=== PATIENT | male | born 1980 | race Caucasian/White ===

== ENCOUNTER 2016-06-22 22:40 | Emergency (ER) | payer MEDICAID ==
[~2016-06-22] VITALS: Ht 165.1 cm; Wt 61.2 kg
[2016-06-22] MEDS ORDERED: NKM (23:06)
[2016-06-22 23:38] VITALS: BP 116/59
--- NOTE | 2016-06-22 23:39 | Emergency Room Report ---
History of Present Illness General Chief Complaint: Abdominal Pain Source: Patient Present Illness [facility] This is a 36-year-old male with no past medical history. He presents with chief complaint of pain to his feet and also rash to his body. The pain been ongoing for last couple days. Worse with walking. Rashes body been ongoing for about 2 weeks now. He said he thinks is from the new closer he picked up. He said he seen bugs in his skin his been scratching it. Initially denies any drug use. Later on admit to using methamphetamine. Denies any fever chills denies any nausea vomiting. Also complaining that he had some rectal bleeding. He said he woke up with the man next to him. This occurred 2 weeks ago also. He did not know if there was any sexual intercourse occurred. He said he was sleeping. Allergies: Coded Allergies: No Known Allergies (Unverified , 06/22/16) Patient History Past Medical History: see triage record, old chart reviewed Past Surgical History: none Pertinent Family History: none Social History: Reports: drug use, smoking Immunizations: other Reviewed Nursing Documentation: PMH: Agreed, PSxH: Agreed Review of Systems Eye: Denies: blurred vision, eye pain ENT: Denies: ear pain, nose congestion, throat swelling Respiratory: Denies: cough, shortness of breath Cardiovascular: Denies: chest pain, palpitations Gastrointestinal: Denies: abdominal pain, diarrhea, nausea, vomiting Musculoskeletal: Denies: back pain, joint pain Skin: Denies: rash Neurological: Denies: headache, numbness Endocrine: Denies: increased thirst, increased urine Hematologic/Lymphatic: Denies: easy bruising All Other Systems: negative except mentioned in HPI Physical Exam Vital Signs Date Time Temp Pulse Resp B/P Pulse Ox O2 Delivery O2 Flow Rate FiO2 06/22/16 22:59 97.9 98 16 116/59 97 Room Air vitals normal Sp02 EP Interpretation: reviewed, normal General Appearance: well appearing, no apparent distress, alert Head: normocephalic, atraumatic Eyes: bilateral eye EOMI, bilateral eye PERRL ENT: hearing grossly normal, normal pharynx Neck: full range of motion, supple, no meningismus Respiratory: chest non-tender, lungs clear, normal breath sounds Cardiovascular #1: regular rate, rhythm, no murmur Gastrointestinal: normal bowel sounds, non tender, no mass, no organomegaly, no bruit, non-distended Rectal: normal exam, normal rectal tone, heme negative stool, other - no blood. Genitourinary: other Musculoskeletal: back normal, gait/station normal, normal range of motion, other - He has blisters to the ball of his feet. Neurologic: alert, oriented x3 Psychiatric: mood/affect normal Skin: warm/dry, other - He has excoriation to his body from scratching. No abscess. No evidence of infection. Medical Decision Making Diagnostic Impression: Primary Impression: Methamphetamine abuse Additional Impressions: Psychogenic formication Friction blisters of sole of right foot Qualified Codes: S90.821A - Blister (nonthermal), right foot, initial encounter Friction blisters of sole of left foot Qualified Codes: S90.822A - Blister (nonthermal), left foot, initial encounter Rectal bleeding ER Course Patient presents with psychogenic formication secondary to drug use. He is otherwise stable. Based on the area of the rash I doubt this is scabies. We' ll discharge home. See no evidence of abdominal pain. Abdominal exam is soft. He did not complain of abdominal pain here. Last Vital Signs Date Time Temp Pulse Resp B/P Pulse Ox O2 Delivery O2 Flow Rate FiO2 06/22/16 22:59 97.9 98 16 116/59 97 Room Air Status: improved Disposition: HOME, SELF-CARE Condition: Stable Additional Instructions: Stop using drugs. Followup with your doctor 7 days. Return if worse. ROBLES CHAVES M.D. Jun 22, 2016 23:39
[2016-06-22 23:56] VITALS: BP 116/59
== END 2016-06-22 23:58 | disposition home or self-care (01) ==
LOC: EMR 23:25
DX: F15.10 Other stimulant abuse, uncomplicated (principal); L98.8 Other specified disorders of the skin and subcutaneous tissue; F54 Psychological and behavioral factors associated with disorders or diseases classified elsewhere; S90.821A Blister (nonthermal), right foot, initial encounter; S90.822A Blister (nonthermal), left foot, initial encounter; K62.5 Hemorrhage of anus and rectum; F17.210 Nicotine dependence, cigarettes, uncomplicated; X58.XXXA Exposure to other specified factors, initial encounter; Y92.9 Unspecified place or not applicable; Y99.8 Other external cause status
CPT/HCPCS: 80300; 99282